=== PATIENT | female | born 1935 | race Caucasian/White ===

== ENCOUNTER 2017-08-08 07:29 | Emergency (ER) | payer OTHER ==
[~2017-08-08] VITALS: Ht 165.1 cm; Wt 63.6 kg
[~2017-08-08 07:29] MED LIST: AMOXICILLIN500 MG PO; ASPIRIN81 M1 PO; Antivert PO; CALCIUM500 M6 PO; ETODOLAC400 MG PO; FOSAMAX5 MG PO; GENTEAL3.5 ML OP; HYDROCHLOROTH12.5 MG PO; HYDROCHLOROTHIA25 MG PO; KEFLEX500 MG PO; LODINE200 MG PO; MULTIVITAMIN1 EAC1 PO; POTASSIUM-9999 MG PO; PROZAC10 MG PO; SYNTHROID112 MCG PO; ULTRAM50 MG PO; VALTREX1000 MG PO; VESICARE10 MG PO; VICODIN,LORT1 TABLET PO; XIBROM5 ML OP; ZOFRAN ODT4 MG PO; predniSONE PO
[2017-08-08 08:42] LABS: HEMATOCRIT 34.5 % (36.0-46.0); HEMOGLOBIN 11.7 G/DL (11.9-15.5); MCH 29.9 PG (29.0-34.0); MCHC 33.9 G/DL (30.0-36.0); MCV 88.2 FL (83-99); PLATELET COUNT 156 K/uL (156-360); RBC DIS.WIDTH-SD 38.5 % (39-53); RED BLOOD COUNT 3.91 M/uL (3.80-5.20); WHITE BLOOD COUNT 19.1 K/uL (4.1-10.2)
[2017-08-08 09:00] LABS: ALBUMIN 3.6 g/dL (3.2-4.8); CHLORIDE 99 mEq/L (99-109); POTASSIUM 2.9 mEq/L (3.7-5.4); SODIUM 135 mEq/L (136-147)
[2017-08-08 09:02] LABS: GLUCOSE 129 mg/dL (70-99); TOTAL PROTEIN 6.1 g/dL (6.4-8.3)
[2017-08-08 09:04] LABS: TOTAL BILIRUBIN 1.4 mg/dL (0.0-1.0)
[2017-08-08 09:05] LABS: ALKALINE PHOSPHATASE 100 IU/L (3-129)
[2017-08-08 09:06] LABS: GFR ESTIMATE (CALCULATED) 56 mL/min/
[2017-08-08 09:07] LABS: AST (GOT) 20 IU/L (2-34); UREA NITROGEN (BUN) 23 mg/dL (9-23)
[2017-08-08 09:09] LABS: ALT (GPT) 13 IU/L (3-49)
[2017-08-08 09:33] LABS: APPEARANCE CLOUDY ((CLEAR)); BILIRUBIN NEGATIVE; BLOOD MODERATE; COLOR AMBER ((YELLOW)); GLUCOSE (STRIP) NEGATIVE; KETONES 5; LEUKOCYTES LARGE; NITRITE NEGATIVE; PROTEIN (STRIP) 100; SPECIFIC GRAVITY 1.017 (1.000-1.030)
[2017-08-08 09:50] LABS: EPITHELIAL CELLS 1+ /HPF; MUCUS NONE SEEN /LPF; RED BLOOD CELLS 0-5 /HPF (0-5); WHITE BLOOD CELLS TNTC /HPF (0-5)
[2017-08-08 09:51] LABS: BACTERIA 3+ /HPF; UCUL ADDED? YES
[2017-08-08 10:21] VITALS: BP 101/50
[2017-08-08] MEDS ORDERED: KEFLEX500 MG PO (11:19)
[2017-08-08] MEDS ORDERED: ZOFRAN ODT4 MG PO (11:19)
[2017-08-08] MEDS ORDERED: K-DUR20 MEQ PO (11:19)
== END 2017-08-08 11:53 | disposition home or self-care (01) ==
LOC: EME 07:29
PROVIDERS: Nurse Practitioner Family
DX: B34.9 Viral infection, unspecified (principal); N39.0 Urinary tract infection, site not specified; R31.9 Hematuria, unspecified; E87.6 Hypokalemia; I10 Essential (primary) hypertension; M06.9 Rheumatoid arthritis, unspecified; E03.9 Hypothyroidism, unspecified; D64.9 Anemia, unspecified; Z79.82 Long term (current) use of aspirin; Z88.1 Allergy status to other antibiotic agents
CPT/HCPCS: 80053; 81003; 85027; 87077; 87086; 87186; 87502; 99281; 99284